=== PATIENT | female | born 1995 | race African-American/Black ===

== ENCOUNTER 2019-07-20 09:13 | Emergency (ER) | payer OTHER ==
[~2019-07-20] VITALS: Ht 167.6 cm; Wt 47.6 kg
--- NOTE | 2019-07-20 09:17 | NUR ---
PT AMBULATED TO ER BED 04
[2019-07-20 09:21] VITALS: BP 118/66
[2019-07-20] MEDS ORDERED: diphenhydrAMINE 50 MG CAP PO ONE (09:30)
--- NOTE | 2019-07-20 09:30 | NUR ---
AWOKE TODAY ABOUT 8AM WITH FACIAL SWELLING---LAST OCCURENCE WAS 2 WKS AGO PT ADMITS TAKING A NAPROXEN LAST NIGHT. STATES SHE HAS TAKEN NAPROXEN BEFORE WITHOUT ADVERSE REACTION. PT DENIES NEW SOAP, LOTION, OR MEDICATION. FULL CLEAR SPEECH, NO TONGUE SWELLING, OR ACCESSORY MUSCLE USE NOTED AT THIS TIME. PT ALERT AND AWAKE. VS STABLE. PT AMBULATORY WITH STEADY GAIT HX--DENIES RX---NONE
--- NOTE | 2019-07-20 09:35 | NUR ---
BENADRYL PO ADMINISTERED
--- NOTE | 2019-07-20 09:44 | NUR ---
NADR, PAIN 0/10
[2019-07-20 09:45] VITALS: BP 112/72
--- NOTE | 2019-07-20 09:45 | NUR ---
Patient discharged with v/s stable. Written and verbal after care instructions given and explained. Patient alert, oriented and verbalized understanding of instructions. Ambulatory with steady gait. All questions addressed prior to discharge. ID band removed. Patient advised to follow up with PMD. Rx of BENADRYL AND PREDNISONE given. Patient educated on indication of medication including possible reaction and side effects. Opportunity to ask questions provided and answered. PT INSTRUCTED THAT SHE CAN CONTINUE TAKING NAPROXEN SINCE SHE TYPICALLY TAKES IT FOR HER PERIOD CRAMPS AND HAS HAD NO PREVIOUS REACTION. PT INSTRUCTED TO STOP TAKING NAPROXEN IF SHE HAS SWELLING AFTER TAKING NAPROXEN AGAIN.
== END 2019-07-20 09:45 | disposition home or self-care (01) ==
LOC: MED 09:13
DX: R22.0 Localized swelling, mass and lump, head (principal); T39.315A Adverse effect of propionic acid derivatives, initial encounter; Y92.89 Other specified places as the place of occurrence of the external cause
CPT/HCPCS: 99283; Q0163

== ENCOUNTER 2019-08-13 09:54 | Emergency (ER) | payer OTHER ==
[~2019-08-13] VITALS: Ht 162.6 cm; Wt 51.7 kg
[2019-08-13 10:00] VITALS: BP 105/55
--- NOTE | 2019-08-13 10:00 | NUR ---
PT AMBULATED TO ER BED 06
--- NOTE | 2019-08-13 10:12 | NUR ---
23 Y/O FEMALE BIB SELF C/O ONE EPISODE OF DIZZINESS/VOMITING THIS MORNING AFTER SHE WOKE UP. PT STATES SHE BEGAN SWEATING PROFUSELY, AND HAD ONE EPISODE OF EMESIS. PT STATES SHE FEELS BETTER NOW, DENIES ANY PAIN OR DIZZNESS. PT IS AFEBRILE. DENIES COUGH/SOB/ CONTACT WITH COVID PTS. RESP EVEN AND UNLABORED.
[2019-08-13 11:18] VITALS: BP 107/62
--- NOTE | 2019-08-13 11:19 | NUR ---
Patient discharged with v/s stable. Written and verbal after care instructions given and explained. Patient verbalized understanding. Ambulatory with steady gait. All questions addressed prior to discharge. Advised to follow up with PMD.
== END 2019-08-13 11:19 | disposition home or self-care (01) ==
LOC: MED 09:54
DX: R55 Syncope and collapse (principal); R42 Dizziness and giddiness; R11.10 Vomiting, unspecified
CPT/HCPCS: 81002; 81025; 93005; 99283

== ENCOUNTER 2019-09-29 10:22 | Emergency (ER) | payer OTHER ==
[~2019-09-29] VITALS: Ht 167.6 cm; Wt 54.4 kg
[2019-09-29 10:25] VITALS: BP 130/75
--- NOTE | 2019-09-29 10:40 | NUR ---
C/O LEFT FOOT PAIN X YESTERDAY. PAIN 07/21. MINOR DISCOMFORT WITH TOUCH TO TOP OF FOOT. PT DOES NOT WANT ANY MEDICATION FOR PAIN. DENIES INJURY. NO SWELLING OR REDNESS NOTED. +ROM. +CMS. PT ALERT AND AWAKE. AMBULATORY WITH STEADY GAIT. HX---DENIES RX---NONE
--- NOTE | 2019-09-29 10:42 | NUR ---
XRAY AT BEDSIDE
[2019-09-29 11:35] VITALS: BP 120/78
--- NOTE | 2019-09-29 11:35 | NUR ---
L DWIGHT WRAP APPLIED BY JOSE MIGUEL FERNANDES, CAP REFILL <3 SECONDS
--- NOTE | 2019-09-29 11:35 | NUR ---
Patient discharged with v/s stable. Written and verbal after care instructions given and explained. Patient verbalized understanding. Ambulatory with steady gait. All questions addressed prior to discharge. Advised to follow up with PMD. PT GIVEN EXCUSE FOR WORK FOR TODAY PT VERBALIZES UNDERSTANDING OF USE OF CRUTCHES, RETURNS DEMONSTRATION
== END 2019-09-29 11:35 | disposition home or self-care (01) ==
LOC: MED 10:22
DX: M79.672 Pain in left foot (principal); R03.0 Elevated blood-pressure reading, without diagnosis of hypertension; Z88.8 Allergy status to other drugs, medicaments and biological substances
CPT/HCPCS: 73630; 99283

== ENCOUNTER 2019-10-24 12:54 | Emergency (ER) | payer OTHER ==
[~2019-10-24] VITALS: Ht 165.1 cm; Wt 47.6 kg
[2019-10-24 13:01] VITALS: BP 126/78
--- NOTE | 2019-10-24 13:06 | NUR ---
23 Y/O F C/C DYSURIA X 2 DAYS. PER PT BELIEVES IT IS UTI. PT PRESENTS EUPNIC,VSS,AMBULATORY,A/OX4. NO OTHER COMPLAINTS NOTED. ALLERGIES NAPROXEN. NO HX. NO RX. NO NVD.
--- NOTE | 2019-10-24 13:57 | NUR ---
Dr. Fuentes is evaluating the patient at bedside.
[2019-10-24] MEDS ORDERED: PHENAZOPYRIDINE 100 MG TAB PO ONE (14:15)
[2019-10-24] MEDS ORDERED: SULFAMETH/TRIMETH DS 800/160MG 1 TAB PO ONE (14:15)
[2019-10-24 14:23] VITALS: BP 122/72
--- NOTE | 2019-10-24 14:24 | NUR ---
Patient discharged with v/s stable. Written and verbal after care instructions given and explained. Patient alert, oriented and verbalized understanding of instructions. Ambulatory with steady gait. All questions addressed prior to discharge. ID band removed. Patient advised to follow up with PMD. Rx of BACTRIM,PYRIDIUM given. Patient educated on indication of medication including possible reaction and side effects. Opportunity to ask questions provided and answered.
== END 2019-10-24 14:24 | disposition home or self-care (01) ==
LOC: MED 12:54
DX: N39.0 Urinary tract infection, site not specified (principal); Z88.6 Allergy status to analgesic agent
CPT/HCPCS: 81002; 81025; 99283

== ENCOUNTER 2020-01-08 13:57 | Emergency (ER) | payer OTHER ==
[~2020-01-08] VITALS: Ht 167.6 cm; Wt 47.6 kg
[2020-01-08 14:53] VITALS: BP 98/58
--- NOTE | 2020-01-08 14:59 | NUR ---
WAIT AT LOBBY. HANDED ON URINE CUP.
[2020-01-08 15:53] LABS: BASOPHILS % (AUTO) 0.8 % (0.0-2.0); EOSINOPHILS # (AUTO) 0.2 K/uL (0-0.4); EOSINOPHILS % (AUTO) 4.6 % (0.0-4.0); HEMATOCRIT 39.2 % (36-48); HEMOGLOBIN 13.4 g/dL (12.0-16.0); LYMPHOCYTES # (AUTO) 1.7 K/uL (2.5-16.5); LYMPHOCYTES % (AUTO) 35.2 % (20.5-51.1); MEAN CORPUSCULAR HEMOGLOBIN 32 pg (27-31); MEAN CORPUSCULAR HGB CONC 34 g/dL (33-37); MEAN CORPUSCULAR VOLUME 92.1 fL (80-94); MONOCYTES # (AUTO) 0.3 K/uL (0.8-1.0); MONOCYTES % (AUTO) 7.1 % (1.7-9.3); NEUTROPHILS # (AUTO) 2.5 K/uL (1.8-7.7); NEUTROPHILS % (AUTO) 52.3 % (42.2-75.2); PLATELET COUNT (AUTO) 269 K/uL (140-450); RED BLOOD CELL COUNT(AUTO) 4.26 MIL/uL (4.20-5.40); RED CELL DISTRIBUTION WIDTH 12.7 % (11.6-13.7); WHITE BLOOD COUNT (AUTO) 4.8 K/uL (4.8-10.8)
--- NOTE | 2020-01-08 16:00 | NUR ---
24 Y/O FEMALE COMES FROM HOME PRESENTS TO ED C/O SHARP INTERMITTENT 6/10 EPIGASTRIC PAIN X 5 DAYS, NAUSEA & DIARRHEA X 3 DAYS. PT WAS SEEN AT [facility] ER AND DIAGNOSED WITH UTI X 2 DAYS AGO, BUT HAS HAD INCREASED EPIGASTRIC PAIN SINCE. PT STATES " THIS IS THE SAME PAIN I GET WHEN MY GASTRITIS ACTS UP". PT STATES SHE HAS BEEN HAVING DECREASED APPETITE X1 DAY. ABDOMEN SOFT, NON TENDER, NON DISTENDED, BOWEL SOUNDS ACTIVE IN ALL FOUR QUADRANTS. PT DENIES FEVER, CHILLS, OR VOMITING. PT STATES SHE ALSO WANTS TO BE COVID TESTED DUE TO FLU LIKE SYMPTOMS 3 DAYS AGO. DENIES EXPOSURE TO ANYONE WITH COVID. MED HX: GASTRITIS ALLERGIES: NAPROXEN
[2020-01-08 16:13] LABS: ALBUMIN 4.2 g/dL (3.4-5.0); TOTAL BILIRUBIN 0.2 mg/dL (0.0-1.0)
--- NOTE | 2020-01-08 16:19 | NUR ---
Dr. March is evaluating the patient at bedside.
[2020-01-08 17:09] LABS: ANION GAP 13.7 (8-16); CARBON DIOXIDE 25.5 mmol/L (21-32); CREATININE 0.6 mg/dL (0.6-1.3); POTASSIUM 4.2 mmol/L (3.5-5.1)
[2020-01-08 17:36] VITALS: BP 98/58
--- NOTE | 2020-01-08 17:36 | NUR ---
Patient discharged with v/s stable. Written and verbal after care instructions given and explained. Patient alert, oriented and verbalized understanding of instructions. Ambulatory with steady gait. All questions addressed prior to discharge. ID band removed. Patient advised to follow up with PMD. Rx of FAMOTIDINE given. Patient educated on indication of medication including possible reaction and side effects. Opportunity to ask questions provided and answered.
== END 2020-01-08 17:36 | disposition home or self-care (01) ==
LOC: MED 13:57
DX: R10.13 Epigastric pain (principal)
CPT/HCPCS: 36415; 80048; 80076; 81002; 81025; 83690; 85025; 99283; U0003

== ENCOUNTER 2020-02-09 18:05 | Emergency (ER) | payer OTHER ==
[~2020-02-09] VITALS: Ht 165.1 cm; Wt 47.6 kg
[2020-02-09 18:31] VITALS: BP 121/64
--- NOTE | 2020-02-09 18:41 | NUR ---
C/O COUGH, MANCILLA 6/10, RUNNY NOSE X 3 DAYS. COWORKER HAD COVID TESTED+. PMH: DENIES
--- NOTE | 2020-02-09 18:45 | NUR ---
TENT1
[2020-02-09 19:00] VITALS: BP 121/64
--- NOTE | 2020-02-09 19:25 | NUR ---
PATIENT ELOPED FROM FACILITY. DISCHARGE INSTRUCTIONS NOT GIVEN TO PATIENT. DR. OJEDA NOTIFIED.
--- NOTE | 2020-02-16 10:32 | NUR ---
LATE ENTRY -- PT HAS LEFT FACILITY WITHOUT BEING SEEN BY DR OJEDA.
== END 2020-02-09 18:32 | disposition left against medical advice (07) ==
LOC: MED 18:05
DX: R05 Cough (principal); R51.9 Headache, unspecified
CPT/HCPCS: 99281

== ENCOUNTER 2022-02-12 11:05 | Emergency (ER) | payer OTHER ==
[~2022-02-12] VITALS: Ht 157.5 cm; Wt 65.8 kg
[2022-02-12 11:12] VITALS: BP 114/65
--- NOTE | 2022-02-12 11:38 | NUR ---
PATIENT PRESENTS TO ED WITH SHORTNESS OF BREATH AND CONGESTION . PT STATES SHE ALSO FEELS GENERALIZED MALISE . DENIES N/V/D; SKIN IS PINK/WARM/DRY; AAOX4 WITH EVEN AND STEADY GAIT; LUNGS CLEAR BL; HR EVEN AND REGULAR; PT DENIES ANY FEVER, CP, SOB, OR COUGH AT THIS TIME; PATIENT STATES PAIN OF 0/10 AT THIS TIME; VSS; PATIENT POSITIONED FOR COMFORT; HOB ELEVATED; BEDRAILS UP X2; BED DOWN. ER MD MADE AWARE OF PT STATUS.
[2022-02-12] MEDS ORDERED: PROM118S5 PO (12:02)
[2022-02-12] MEDS ORDERED: ACET-10509 PO (12:02)
[2022-02-12 12:22] VITALS: BP 116/59
--- NOTE | 2022-02-12 12:23 | NUR ---
Patient discharged with v/s stable. Written and verbal after care instructions given and explained. Patient alert, oriented and verbalized understanding of instructions. Ambulatory with steady gait. All questions addressed prior to discharge. ID band removed. Patient advised to follow up with PMD. Rx of TYLENOL AND PROMETHAZINE given. Patient educated on indication of medication including possible reaction and side effects. Opportunity to ask questions provided and answered.
== END 2022-02-12 12:22 | disposition home or self-care (01) ==
LOC: MED 11:05
DX: J06.9 Acute upper respiratory infection, unspecified (principal); Z20.822 Contact with and (suspected) exposure to COVID-19; Z79.899 Other long term (current) drug therapy; Z88.8 Allergy status to other drugs, medicaments and biological substances
CPT/HCPCS: 71045; 99284